=== PATIENT | male | born 1955 | race Caucasian/White ===

== ENCOUNTER 2020-04-24 09:09 | Outpatient (CLI) | payer OTHER, SELFPAY ==
--- NOTE | ~2020-04-24 | CT_ITS ---
EXAMINATION: CT chest w con DATE: 04/24/2020 10:00 INDICATION: Colon cancer with liver metastases TECHNIQUE: Transaxial computed tomographic images of the chest were obtained after the administration of 75 cc of Omnipaque 350 intravenous contrast. The dose-length product (DLP) was 202.12 mGy-cm. Ite rative reconstruction was used. COMPARISON: 08/15/2019 FINDINGS: There is unchanged mild elevation of the right hemidiaphragm. Calcified pulmonary nodules a nd calcified left hilar and mediastinal lymph nodes are consistent with old granulomatous disease. Th ere is mild dependent atelectasis. No pathologically enlarged thoracic lymph nodes are identified. Th e heart size is normal. No pleural effusion or pneumothorax is identified. A right internal jugular P ort-A-Cath ends with its tip in the distal superior vena cava. There is interval enlargement of a hyp odense mass of the left hepatic lobe which measures 4.3 x 3.8 cm, previously 2.4 x 1.5 cm on the most recent comparison. IMPRESSION: 1. No evidence of thoracic metastatic disease. 2. Interval enlargement of a left hepatic lobe mass, consistent with metastatic disease. Reviewed, dictated and finalized at location A.
== END 2020-04-24 09:10 | disposition home or self-care (01) ==
LOC: ANHIMG 09:13
PROVIDERS: PCP Emergency Medicine; Visit Provider Internal Medicine Hematology & Oncology
DX: C18.7 Malignant neoplasm of sigmoid colon (principal); R16.0 Hepatomegaly, not elsewhere classified
CPT/HCPCS: 71260; Q9967

== ENCOUNTER 2020-07-16 09:07 | Outpatient (CLI) | payer OTHER, SELFPAY ==
--- NOTE | ~2020-07-16 | CT_ITS ---
EXAMINATION: CT chest abdomen pelvis w con DATE: 07/16/2020 10:00 INDICATION: Colon cancer TECHNIQUE: Transaxial computed tomographic images of the chest, abdomen, and pelvis were obtained aft er the administration of 100 cc of Omnipaque 350 intravenous contrast. The dose-length product (DLP) was 640.21 mGy-cm. Automated exposure control and iterative reconstruction technique were employed. COMPARISON: 04/24/2020, 08/05/2019 FINDINGS: CHEST CT: There is unchanged elevation of the right hemidiaphragm. A right internal jugular Port-A-Cath ends wi th its tip in the distal superior vena cava. Calcified pulmonary nodules and calcified left hilar and mediastinal lymph nodes are consistent with old granulomatous disease. There is mild dependent atele ctasis. No focal airspace opacities are identified. No pathologically enlarged thoracic lymph nodes a re identified. The heart size is normal. Bilateral gynecomastia is noted. There is mild thoracic spon dylosis. ABDOMEN/PELVIS CT: An approximately 4.3 x 3.8 cm mass of the left hepatic lobe is not significantly changed since the mo recent comparison examination. No definite new liver mass is identified. The spleen, pancreas, and adrenal glands are normal. The gallbladder is surgically absent. There is a 1.3 cm cyst of the right kidney. The left kidney is unremarkable. No pathologically enlarged abdominal or pelvic lymph nodes are identified. There is no free intraperitoneal gas or evidence of bowel obstruction. A circumaortic left renal vein is noted. There is calcified atherosclerosis of the aorta and many of the other janice sam. There are surgical changes at the rectosigmoid colon. There is mild lumbar spondylosis. There i s a small fat-containing umbilical hernia. IMPRESSION: 1. Stable mass of the left hepatic lobe, consistent with metastatic disease. 2. No thoracic metastatic disease identified. Reviewed, dictated and finalized at location A.
== END 2020-07-16 09:08 | disposition home or self-care (01) ==
LOC: ANHIMG 09:15
PROVIDERS: PCP Emergency Medicine; Visit Provider Internal Medicine Hematology & Oncology
DX: C18.7 Malignant neoplasm of sigmoid colon (principal)
CPT/HCPCS: 71260; 74177; Q9967

== ENCOUNTER 2020-12-29 00:31 | Emergency (ER) | payer OTHER, SELFPAY ==
--- NOTE | ~2020-12-29 | CT_ITS ---
EXAMINATION: CT abdomen pelvis w con EXAM DATE: 12/29/2020 02:23 INDICATION: Abdominal pain, history of colon cancer with liver. TECHNIQUE: Spiral CT of the abdomen and pelvis was performed following intravenous injection of 100 m L Omnipaque 350. Axial, coronal and sagittal images were reviewed. The dose-length product (DLP) fo r this examination was 530.20 mGy-cm. The exposure was tailored according to patient size (auto mA e xposure control), and iterative reconstruction (ASIR) was used as additional dose reduction technique . Comparison is made to prior examination from 07/16/2020. FINDINGS: Again there is left liver lobe cystic mass, measuring about 5 cm. Appearance stable. No new liver lesions. The spleen, pancreas and adrenal glands are unremarkable. Gallbladder is unremarkabl e. No biliary obstruction. Portal and splenic veins are patent. Kidneys enhance symmetrically. Th ere is no hydronephrosis. The prostate is unremarkable. The bladder is unremarkable. There is no retroperitoneal or pelvic lymphadenopathy. Tiny umbilical fat-containing hernias. Small amount of p erihepatic ascites. The appendix is normal. There is cecal anastomosis site, and also a rectosigmoid anastomosis site. Th ere are several loops of mid small bowel with severe edema, no pneumatosis. The vasculature to the stacey wel appears nonthrombosed. Differential diagnosis includes enteritis, inflammatory bowel disease, vas culopathy, less likely ischemia. This is a new finding compared to previous exam. There is expected a mount of colonic stool. No free intraperitoneal gas. The heart is normal in size. There are no p ericardial or pleural effusions. Basilar subsegmental atelectasis. There are no osteoblastic or ost eolytic lesions identified. IMPRESSION: 1. Several loops of severe mid jejunal edema without thrombosed vessels. Consider enteritis, inflamm atory bowel disease, vasculopathy, less likely nonocclusive ischemia. 2. Stable left liver lobe cystic mass. 3. Development of small amount perihepatic ascites. 4. Cystic duct remnant stones. Reviewed, dictated and finalized at location A. IMPRESSION: 1. Several loops of severe mid jejunal edema without thrombosed vessels. Consi felipe enteritis, inflammatory bowel disease, vasculopathy, less likely nonocclusi ve ischemia. 2. Stable left liver lobe cystic mass. 3. Development of small amount perihepatic ascites. 4. Cystic duct remnant stones.
[2020-12-29 00:34] VITALS: BP 102/71; PULSE 88; RESP 16; TEMP 36.3; O2SAT 96
[2020-12-29] MEDS: SODIUM CHLORIDE 0.9% IV 1,000 ML 999 ML IV CONT ×2 (02:05→03:30)
[2020-12-29] MEDS: ONDANSETRON INJ 4 MG/2 ML VIAL IV PUSH (02:06)
[2020-12-29] MEDS: HYDROmorphone HCL INJ (*CRX) 1 MG/ML SYR 0.5 MG IV PUSH (02:06)
[2020-12-29 03:38] LABS: Hemoglobin 14.3 g/dL (14.0-18.0); Lymphocytes Absolute Auto 0.25 K/mm3 (0.9-3.2); Lymphocytes Percent Auto 7.1 % (18.3-44.2); Mean Corpuscular HGB Conc 33.3 g/dl (32-36); Mean Corpuscular Hemoglobin 31.1 pg (26-34); Mean Corpuscular Volume 93.5 fl (80-100); Mean Platelet Volume 9.5 fl (7.4-10.4); Monocytes Absolute Auto 0.2 K/mm3 (0.1-0.6); Monocytes Percent Auto 4.3 % (2.6-8.5); Neutrophils Absolute Auto 3.1 K/mm3 (1.3-6.7); Neutrophils Percent Auto 88.6 % (45.5-73.1); Platelet Count Result 240 k/mm3 (150-375); Red Cell Distribution Width 15.6 % (11.5-14.5); White Blood Count 3.5 K/mm3 (4.5-10.0)
[2020-12-29 03:52] VITALS: BP 124/76; PULSE 86; RESP 16; TEMP 36.3; O2SAT 96
[2020-12-29 03:53] LABS: Alanine Aminotransferase 27 U/L (4-50); Albumin Level 4.3 g/dL (3.5-5.1); Alkaline Phosphatase 154 U/L (38-126); Anion Gap 9 mmol/L (8-16); Aspartate Amino Transferase 35 U/L (17-59); Bilirubin,Total 1.3 mg/dL (0.2-1.3); Blood Urea Nitrogen 14 mg/dL (9-20); Calcium 9.3 mg/dL (8.4-10.2); Carbon Dioxide 25 mmol/L (22-30); Chloride 107 mmol/L (98-107); Estimated CRCL calculation 65 ml/min; Estimated Glomerular Filt Rate > 60; Glucose 122 mg/dL (75-110); Lipase 58 U/L (23-300); Potassium 4.6 mmol/L (3.4-5.0); Sodium 141 mmol/L (137-145)
--- NOTE | 2020-12-29 04:24 | ED.GENADULT ---
HPI - General Adult General Chief complaint: Abdominal Pain Stated complaint: I have cancer/ pain Time Seen by Provider: 12/29/20 01:59 Source: patient and family Limitations: no limitations History of Present Illness HPI narrative: Patient is 65 years old white male presents with mid back pain started few hours prior to arrival to the emergency room. Patient denies any fever, chills, nausea, vomiting, abdominal pain or chest pain. Patient had similar symptoms at least twice in the past and was told to take Advil for it. History of colon cancer with liver metastasis. Related Data Home Medications Medication Instructions Recorded Confirmed ascorbic acid (vitamin C) 500 mg PO DAILY 07/23/19 12/28/20 aspirin [Aspir-81] 81 mg PO DAILY 07/23/19 12/28/20 lidocaine-prilocaine 1 applic TOPICAL ONCE 07/23/19 12/28/20 lisinopril 40 mg PO DAILY 07/23/19 12/28/20 megestrol 625 mg PO DAILY 07/23/19 12/28/20 multivitamin 1 tablet PO DAILY 07/23/19 12/28/20 ondansetron HCl 4 mg PO Q6H PRN 07/23/19 12/28/20 oxybutynin chloride 5 mg PO DAILY 07/23/19 12/28/20 vit A,C and X-mivjhd-zprwkghf 1 tablet PO DAILY 07/23/19 12/28/20 [Ocuvite with Lutein] mecobalamin (vitamin B12) [B12 1,000 mcg PO DAILY 08/17/20 12/28/20 Active] gabapentin 300 mg PO QID 09/28/20 12/28/20 dicyclomine 10 mg PO QID 12/28/20 12/28/20 omeprazole 40 mg PO DAILY 12/28/20 12/28/20 sertraline 50 mg PO DAILY 12/28/20 12/28/20 Allergies Allergy/AdvReac Type Severity Reaction Status Date / Time egg Allergy Unknown Diarrhea Verified 12/28/20 09:18 milk Allergy Unknown Diarrhea Verified 12/28/20 09:18 Review of Systems Review of Systems: Narrative: CONSTITUTIONAL: Denies fever, chills, or sweats. EYES: Denies visual changes, redness, or discharge. ENT: Denies rhinorrhea, congestion, sore throat, or otalgia. CARDIOVASCULAR: Denies chest pain, palpitations, or edema. RESPIRATORY: Denies cough or dyspnea. GASTROINTESTINAL: Denies abdominal pain, nausea, vomiting, or diarrhea. GENITOURINARY: Denies dysuria or hematuria. SKIN: Denies rash or itching. MUSCULOSKELETAL: Denies back pain, joint pain, or myalgia. NEUROLOGIC: Denies headache, numbness, or weakness. PSYCHIATRIC: Denies anxiety or depression. [facility] Family History Family History Mother Family history of lung cancer Social History Social History Smoking status: Never smoker Alcohol intake: never Exam Narrative: Exam Narrative: General appearance: Well-developed, well-nourished Skin: Normal color Head: Normocephalic, nontraumatic Eyes: Clear conjunctiva ENT: Oropharynx normal, ears normal, nose normal Neck: Supple, nontender Chest and respiratory: Airway patent, no respiratory distress, no accessory muscle use Heart: Regular rate/rhythm Abdomen: Soft, nontender, no organomegaly, quiet bowel sounds Vascular: Normal peripheral pulses, normal capillary refill. Musculoskeletal: Normal range of motion, nontender back Neurologic: Alert and oriented ?3, PROGRAM DIRECTOR is normal as tested, no gross motor deficit Course Course Emergency Course: Stable, improved Vital Signs Vital signs: Vital Signs Temperature 36.3 C L 12/29/20 00:34 Pulse Rate 88 12/29/20 00:34 Respiratory Rate 16 12/29/20 00:34 Blood Pressure 102/71 12/29/20 00:34 Pulse Oximetry 96 12/29/20 00:34 Temperature 36.3 C L 12/29/20 03:52 Pulse Rate 86 12/29/20 03:52 Respiratory Rate 16 12/29/20 03:52 Blood Pressure 124/76 12/29/20 03:52 Pulse Oximetry 96 12/29/20 03:52 Medical Decision Making MDM Narrative Medical deci
== END 2020-12-29 04:40 | disposition home or self-care (01) ==
PROVIDERS: Emergency Provider Emergency Medicine; PCP Emergency Medicine
DX: M54.6 Pain in thoracic spine (principal); C78.7 Secondary malignant neoplasm of liver and intrahepatic bile duct; Z85.038 Personal history of other malignant neoplasm of large intestine; Z79.82 Long term (current) use of aspirin; R93.3 Abnormal findings on diagnostic imaging of other parts of digestive tract
CPT/HCPCS: 36415; 74177; 80053; 83690; 85025; 96361; 96374; 96375; 99284; J1170; J2405; J7030; Q9967

== ENCOUNTER 2021-01-08 12:29 | Emergency (ER) | payer OTHER, SELFPAY ==
[2021-01-08] VITALS (7 sets, daily range): BP systolic 103–136; BP diastolic 57–89; PULSE 70–88; RESP 16–20; TEMP 36.5; O2SAT 100
--- NOTE | ~2021-01-08 | CT_ITS ---
EXAMINATION: CT abdomen pelvis w con INDICATION: Abdominal pain TECHNIQUE: Computed tomographic images of the abdomen and pelvis were obtained after the administrati on of 100 cc of Omnipaque 350 intravenous contrast. The dose-length product (DLP) was 542.38 mGy-cm. Automated exposure control and iterative reconstruction technique were employed. COMPARISON: 12/29/2020 FINDINGS: Minimal dependent atelectasis is present in the lung bases. The heart size is normal. A 5.6 cm mass of the left hepatic lobe previously measured 4.8 cm. The spleen and pancreas are normal. The gallbladder is absent. The adrenal glands are normal. The left kidney is unremarkable. There is a 12 mm cyst of the right kidney upper pole. No pathologically enlarged abdominal or pelvic lymph nodes a re identified. There is no free intraperitoneal gas or evidence of bowel obstruction. There is a surg ical anastomosis in the rectum. There are multiple small fat-containing ventral hernias. Mild lumbar spondylosis is noted. IMPRESSION: 1. No CT correlate for the patient's symptoms. 2. Increase in size of the left hepatic lobe metastasis. Reviewed, dictated and finalized at location A.
[2021-01-08 13:23] LABS: Basophils Percent Auto 1.1 % (0.2-1.2); Eosinophils Percent Auto 3.4 % (0-4.4); Hematocrit 32.8 % (42.0-52.0); Hemoglobin 10.9 g/dL (14.0-18.0); Immature Granulocyte Absolute 0.02 K/mm3 (0.00-0.031); Immature Granulocyte Percent A 2.3 % (0-0.5); Lymphocytes Absolute Auto 0.37 K/mm3 (0.9-3.2); Mean Corpuscular HGB Conc 33.2 g/dl (32-36); Mean Corpuscular Volume 93.2 fl (80-100); Mean Platelet Volume 9.8 fl (7.4-10.4); Monocytes Absolute Auto 0.1 K/mm3 (0.1-0.6); Monocytes Percent Auto 14.8 % (2.6-8.5); Neutrophils Absolute Auto 0.3 K/mm3 (1.3-6.7); Neutrophils Percent Auto 36.4 % (45.5-73.1); Platelet Count Result 169 k/mm3 (150-375); Red Blood Count 3.52 M/mm3 (4.6-6.20); Red Cell Distribution Width 15.4 % (11.5-14.5)
[2021-01-08 13:30] LABS: Add Urine Microscopic? YES; Appearance Urine Cloudy (Clear); Bilirubin Urine Negative (Negative); Blood Urine Negative (Negative); Color Urine Amber (Yellow); Glucose Urine UA Negative (Negative); Ketones Urine Trace mg/dL (Negative); Leukocyte Esterase Ur Negative LEU/UL (Negative); Mucus Urine Heavy /lpf; Nitrate Urine Negative (Negative); Protein Urine 2+ mg/dL (Negative); Squamous Epithelial Cell Urine Few /hpf (Few)
[2021-01-08 13:32] LABS: INR 1.2; Prothrombin Time 16.2 Seconds (11.1-14.7)
[2021-01-08 13:33] LABS: Partial Thromboplastin Time 40.2 SECONDS (22.3-36.8)
[2021-01-08 13:35] LABS: White Blood Count 0.9 K/mm3 (4.5-10.0)
[2021-01-08 13:36] LABS: Specific Grav Ur 1.034 (1.001-1.035)
[2021-01-08 13:37] LABS: Lactic Acid Reflex 2.5 mmol/L (0.7-2.1); Platelet Estimate Adequate (Adequate)
[2021-01-08 13:38] LABS: Anisocytosis 1+ (NORMAL); Hypochromasia 1+ (NORMAL); Ovalocytes 1+ (NORMAL); Tear Drop Cells 1+ (NORMAL)
[2021-01-08 13:39] LABS: Alanine Aminotransferase 30 U/L (4-50); Albumin Level 3.8 g/dL (3.5-5.1); Alkaline Phosphatase 131 U/L (38-126); Anion Gap 8 mmol/L (8-16); Aspartate Amino Transferase 28 U/L (17-59); Bilirubin,Total 1.3 mg/dL (0.2-1.3); Blood Urea Nitrogen 21 mg/dL (9-20); Carbon Dioxide 26 mmol/L (22-30); Chloride 105 mmol/L (98-107); Estimated CRCL calculation 65 ml/min; Estimated Glomerular Filt Rate > 60; Glucose 123 mg/dL (75-110); Lipase 27 U/L (23-300); Potassium 3.6 mmol/L (3.4-5.0); Sodium 139 mmol/L (137-145)
[2021-01-08 16:20] LABS: Reflex Lactic Acid Yes or No Add Lactic
--- NOTE | 2021-01-08 16:22 | PC.NURSE ---
Pt to CT scan via stretcher at this time.
--- NOTE | 2021-01-08 16:59 | ED.ABDPAIN ---
HPI - Abdominal Pain General Chief Complaint: Abdominal Pain <Álvaro Lugo PA-C - Last Filed: 01/08/21 17:23> Stated Complaint: SENT BY PCP FOR WEIGHT LOSS/ABD PAIN <Álvaro Lugo PA-C - Last Filed: 01/08/21 17:23> Time Seen by Provider: 01/08/21 12:50 <Álvaro Lugo PA-C - Last Filed: 01/08/21 17:23> Source: patient, family and old records reviewed <Álvaro Lugo PA-C - Last Filed: 01/08/21 17:23> Mode of arrival: ambulatory <Álvaro Lugo PA-C - Last Filed: 01/08/21 17:23> Limitations: no limitations <Álvaro Lugo PA-C - Last Filed: 01/08/21 17:23> History of Present Illness HPI narrative: Patient is a 65-year-old male who presents to emergency department for evaluation of abdominal discomfort and possible dehydration from his oncology office where he was getting his Neupogen shot. Patient has history of colon cancer and has been experiencing abdominal pain off and on which has been treated with Tylenol. Patient has also had decreased appetite. Patient on arrival is in the room in no distress notes pain of the abdomen that is mild to moderate. Patient denies any vomiting nausea rectal bleeding melena or diarrhea. Patient is scheduled for chemotherapy on Monday. Patient otherwise denies any illness injury or trauma or other complaints <Álvaro Lugo PA-C - Last Filed: 01/08/21 17:23> Related Data Home Medications: Home Medications Medication Instructions Recorded Confirmed ascorbic acid (vitamin C) 500 mg PO DAILY 07/23/19 01/08/21 aspirin [Aspir-81] 81 mg PO DAILY 07/23/19 01/08/21 lidocaine-prilocaine 1 applic TOPICAL ONCE 07/23/19 01/08/21 lisinopril 40 mg PO DAILY 07/23/19 01/08/21 megestrol 625 mg PO DAILY 07/23/19 01/08/21 multivitamin 1 tablet PO DAILY 07/23/19 01/08/21 ondansetron HCl 4 mg PO Q6H PRN 07/23/19 01/08/21 oxybutynin chloride 5 mg PO DAILY 07/23/19 01/08/21 vit A,C and O-polmki-hwbicnui 1 tablet PO DAILY 07/23/19 01/08/21 [Ocuvite with Lutein] mecobalamin (vitamin B12) [B12 1,000 mcg PO DAILY 08/17/20 01/08/21 Active] gabapentin 300 mg PO QID 09/28/20 01/08/21 dicyclomine 10 mg PO QID 12/28/20 01/08/21 omeprazole 40 mg PO DAILY 12/28/20 01/08/21 sertraline 50 mg PO DAILY 12/28/20 01/08/21 <Álvaro Lugo PA-C - Last Filed: 01/08/21 17:23> Allergies/Adverse Reactions: Allergies Allergy/AdvReac Type Severity Reaction Status Date / Time egg Allergy Unknown Diarrhea Verified 01/08/21 12:13 milk Allergy Unknown Diarrhea Verified 01/08/21 12:13 <Álvaro Lugo PA-C - Last Filed: 01/08/21 17:23> Review of Systems Review of Systems: All systems reviewed & are unremarkable except as noted in HPI and below <Álvaro Lugo PA-C - Last Filed: 01/08/21 17:23> PMFSH Past Medical History Medical History: Medical History (Updated 01/08/21 @ 17:22 by Álvaro Lugo PA-C) Chemotherapy induced neutropenia Colon cancer <Álvaro Lugo PA-C - Last Filed: 01/08/21 17:23> Family History Family History: Family History Mother Family history of lung cancer <Álvaro Lugo PA-C - Last Filed: 01/08/21 17:23> Social History Social History: Social History Smoking status: Never smoker Alcohol intake: never Gender identity (if verbalized by the patient): Male <Álvaro Lugo PA-C - Last Filed: 01/08/21 17:23> Exam Narrative: Exam Narrative: GENERAL: Chronically ill-appearing, well-nourished, and in no acute distress. HEAD: Normocephalic, atraumatic. EYES: PERRLA and EOMI. ENT: Nares clear, no rhinorrhea or epistaxis. Mucous membranes moist. CHEST: Clear to auscultation. No respiratory distress. No wheezes rales or rhonchi HEART: Regular rate and rhythm. No murmur heard. Normal peripheral pulses. ABDOMEN: Soft, mild tenderness of the abdomen throughout n
[2021-01-08 17:29] LABS: Lactic Acid 1.1 mmol/L (0.7-2.1)
== END 2021-01-08 18:00 | disposition home or self-care (01) ==
PROVIDERS: Emergency Medicine Emergency Medical Services; Emergency Provider General Practice; PCP Emergency Medicine
DX: R10.9 Unspecified abdominal pain (principal); C18.9 Malignant neoplasm of colon, unspecified; C78.7 Secondary malignant neoplasm of liver and intrahepatic bile duct; D70.1 Agranulocytosis secondary to cancer chemotherapy; T45.1X5A Adverse effect of antineoplastic and immunosuppressive drugs, initial encounter
CPT/HCPCS: 36415; 74177; 80053; 81001; 83605; 83690; 85025; 85610; 85730; 86140; 86850; 86900; 86901; 96365; 96372; 99284; J0131; J7030; Q5101; Q9967

== ENCOUNTER → 2021-01-19 03:20 | Outpatient (CLI) | payer OTHER, SELFPAY ==
[2021-01-19 20:31] LABS: SARS-CoV-2 RNA PCR Negative
== END ==
PROVIDERS: PCP Emergency Medicine; Visit Provider Internal Medicine Gastroenterology
DX: Z01.812 Encounter for preprocedural laboratory examination (principal); Z20.822 Contact with and (suspected) exposure to COVID-19
CPT/HCPCS: C9803; U0003; U0005

== ENCOUNTER 2021-01-22 01:47 | Day surgery (SDC) | payer OTHER, SELFPAY ==
[2021-01-14 13:12] VITALS: BMI 24.6
[2021-01-22 11:06] VITALS: BP 154/80; PULSE 68; RESP 17; TEMP 36.1; O2SAT 100; BMI 23.4
[2021-01-22] MEDS: LACTATED RINGERS 1,000 ML 150 ML IV CONT (11:25)
--- NOTE | 2021-01-22 11:26 | WPDANESEPPF ---
Anes - Initial Pre Proc Eval Procedure: Operation Date: 01/22/21 12:15 Proposed Procedures p Esophagogastroduodenoscopy & Colonoscopy - Quinton Willett MD Date/Time: 01/22/21 11:26 Surgeon: Quinton Willett MD Pre Op Diagnosis: weight loss, abd pain, anorexia Patient Data Age: 65 Gender: M Height: 5 ft 10 in Weight: 74.2 kg Last Vital Signs Temp 97 F L 01/22/21 11:06 Pulse 68 01/22/21 11:06 Resp 17 01/22/21 11:06 BP 154/80 H 01/22/21 11:06 Pulse Ox 100 01/22/21 11:06 Allergies Allergy/AdvReac Type Severity Reaction Status Date / Time egg Allergy Unknown Diarrhea Verified 01/22/21 11:05 milk Allergy Unknown Diarrhea Verified 01/22/21 11:05 Home Medications Medication Instructions Recorded Confirmed Type ascorbic acid (vitamin C) 500 mg PO DAILY 07/23/19 01/22/21 History aspirin [Aspir-81] 81 mg PO DAILY 07/23/19 01/22/21 History lidocaine-prilocaine 1 applic TOPICAL ONCE 07/23/19 01/22/21 History lisinopril 40 mg PO DAILY 07/23/19 01/22/21 History megestrol 625 mg PO DAILY 07/23/19 01/22/21 History multivitamin 1 tablet PO DAILY 07/23/19 01/22/21 History ondansetron HCl 4 mg PO Q6H PRN 07/23/19 01/22/21 History vit A,C and P-myfvep-bmbiywxh 1 tablet PO DAILY 07/23/19 01/22/21 History [Ocuvite with Lutein] simvastatin 10 mg tablet 10 mg PO HS #90 tablet 04/02/20 01/22/21 Rx mecobalamin (vitamin B12) [B12 1,000 mcg PO DAILY 08/17/20 01/22/21 History Active] gabapentin 300 mg PO QID 09/28/20 01/22/21 History dicyclomine 10 mg PO PRN PRN 12/28/20 01/22/21 History omeprazole 40 mg PO DAILY 12/28/20 01/22/21 History sertraline 50 mg PO DAILY 12/28/20 01/22/21 History famotidine [Pepcid] 20 mg PO BID #14 tablet 01/08/21 01/22/21 Rx Patient hx anesthesia problems: none Family hx anesthesia problems: none PMFSH Past Medical History Medical History (Updated 01/09/21 @ 00:00 by Lore Brown) Chemotherapy induced neutropenia Colon cancer Family History Family History Mother Family history of lung cancer Social History Social History Smoking status: Never smoker Alcohol intake: never Substance use: never Gender identity (if verbalized by the patient): Male Spiritual care concerns: No Anes - Eval Final PreProcedure Day of Procedure 01/22/21 11:26 Patient weight: normal Heart: regular rate and rhythm Lungs: clear to auscultation Airway: Mallampati scale class II Neurological: alert and oriented Last oral intake: >/= 8 hours ASA classification: IV Emergent: no Anesthetic plan: proceed Anesthesia type and monitoring: general GIVS and standard monitoring Informed Consent: The patient's anesthetic plan and its attendant risks and benefits were discussed with the patient/family/POA. Questions were solicited and answers provided to the satisfaction of the patient/family/POA.
--- NOTE | 2021-01-22 11:54 | PM.HPGS ---
History of Present Illness History of Present Illness Consent: Risks, benefits, and alternatives have been discussed and questions answered. Patient agrees to proceed with procedure. Chief complaint: weight loss, abd pain, anorexia Narrative: Shane Bryan is a 65 year old male with rectal cancer in 2018 s/p surgery and still on chemotherapy, found to have also liver met. He had weight loss and has not had colonoscopy since then. Review of Systems Constitutional: Constitutional: Denies headache(s) and Denies weakness Eyes: Eyes: Denies blurry vision ENT: Reports Normal hearing present, Denies headache(s) and Denies neck pain Cardiovascular: Cardiovascular: Denies chest pain and Denies dyspnea Respiratory: Respiratory: Denies dyspnea Gastrointestinal: Gastrointestinal: Reports no additional gastrointestinal complaints Genitourinary: Genitourinary: Denies dysuria Musculoskeletal: Musculoskeletal: Denies neck pain Integumentary/Breasts: Skin/Breast: Denies dry skin Neurologic: Reports Normal hearing present, Denies headache(s) and Denies weakness Psychiatric: Psychiatric: Denies anxiety Endocrine: Endocrine: Denies change in body appearance Hematologic/Lymphatic: Hematologic/Lymphatic: Denies easy bleeding Allergic/Immunologic: Allergic/Immunologic: Denies urticaria PMFSH Past Medical History Medical History (Updated 01/22/21 @ 11:55 by Quinton Willett MD) Chemotherapy induced neutropenia Colon cancer Metastasis to liver Weight loss Family History Family History Mother Family history of lung cancer Social History Social History Smoking status: Never smoker Alcohol intake: never Substance use: never Gender identity (if verbalized by the patient): Male Spiritual care concerns: No Meds Home Medications and Allergies Home Medications Medication Instructions Recorded Confirmed Type ascorbic acid (vitamin C) 500 mg PO DAILY 07/23/19 01/22/21 History aspirin [Aspir-81] 81 mg PO DAILY 07/23/19 01/22/21 History lidocaine-prilocaine 1 applic TOPICAL ONCE 07/23/19 01/22/21 History lisinopril 40 mg PO DAILY 07/23/19 01/22/21 History megestrol 625 mg PO DAILY 07/23/19 01/22/21 History multivitamin 1 tablet PO DAILY 07/23/19 01/22/21 History ondansetron HCl 4 mg PO Q6H PRN 07/23/19 01/22/21 History vit A,C and H-jjzkpn-agxjxyur 1 tablet PO DAILY 07/23/19 01/22/21 History [Ocuvite with Lutein] simvastatin 10 mg tablet 10 mg PO HS #90 tablet 04/02/20 01/22/21 Rx mecobalamin (vitamin B12) [B12 1,000 mcg PO DAILY 08/17/20 01/22/21 History Active] gabapentin 300 mg PO QID 09/28/20 01/22/21 History dicyclomine 10 mg PO PRN PRN 12/28/20 01/22/21 History omeprazole 40 mg PO DAILY 12/28/20 01/22/21 History sertraline 50 mg PO DAILY 12/28/20 01/22/21 History famotidine [Pepcid] 20 mg PO BID #14 tablet 01/08/21 01/22/21 Rx Allergies Allergy/AdvReac Type Severity Reaction Status Date / Time egg Allergy Unknown Diarrhea Verified 01/22/21 11:05 milk Allergy Unknown Diarrhea Verified 01/22/21 11:05 Vital Signs Vital Signs - 24 hr 01/22/21 11:06 Temperature 97 F L Pulse Rate 68 Respiratory Rate 17 Blood Pressure 154/80 H Pulse Oximetry 100 Exam Const: General: comfortable and no acute distress HENMT: General nose exam: Normal nares present Eyes: General: appearance normal, both eyes and all related structures Neck: Neck: no JVD Resp: Auscultation: clear to auscultation bilaterally Cardio: Rate: regular rate Rhythm: regular rhythm GI: Inspection: non-distended GI Palp: Yes Soft to palpation Skin: General skin exam: normal color Neuro: General: gait normal Speech: normal speech Extrem: General: normal to inspection Psych: Mental Status: mental status grossly normal Assessment and Plan Assessment and plan (1) Metastasis to liver:
[2021-01-22 12:20] VITALS: BP 122/76; PULSE 70; RESP 17; O2SAT 100
[2021-01-22 12:30] VITALS: BP 142/85; PULSE 57; RESP 16; O2SAT 100
[2021-01-22 12:40] VITALS: BP 157/91; PULSE 64; RESP 17; O2SAT 100
== END 2021-01-22 13:09 | disposition home or self-care (01) ==
PROVIDERS: PCP Emergency Medicine; Visit Provider Internal Medicine Gastroenterology
PROC: 0DJ08ZZ Inspection of Upper Intestinal Tract, Via Natural or Artificial Opening Endoscopic (ICD-10-PCS; CPT 43235; principal; 2021-01-22 12:15)
DX: C20 Malignant neoplasm of rectum (principal); C78.7 Secondary malignant neoplasm of liver and intrahepatic bile duct; R63.4 Abnormal weight loss; Z92.21 Personal history of antineoplastic chemotherapy; Z98.0 Intestinal bypass and anastomosis status; K57.30 Diverticulosis of large intestine without perforation or abscess without bleeding; K64.8 Other hemorrhoids; Z79.82 Long term (current) use of aspirin; R63.0 Anorexia
CPT/HCPCS: 43235; 45378; C9803; J2704; J7120; U0003; U0005

== ENCOUNTER 2022-08-08 09:16 | Outpatient (CLI) | payer OTHER, SELFPAY ==
[2022-08-08 12:24] LABS: Cholesterol 108 mg/dL (0-200); HDL Direct 46 mg/dL; Triglycerides 90 mg/dL (<150)
[2022-08-08 12:41] LABS: LDL Cholesterol Direct < 30 mg/dL
== END 2022-08-08 09:17 | disposition home or self-care (01) ==
LOC: ANHLAB 09:18
PROVIDERS: PCP Nurse Practitioner Family; Visit Provider Nurse Practitioner Family
DX: E78.2 Mixed hyperlipidemia (principal)
CPT/HCPCS: 36415; 80061

== ENCOUNTER 2023-02-14 08:07 | Outpatient (CLI) | payer OTHER, SELFPAY ==
--- NOTE | ~2023-02-14 | NM_ITS ---
EXAMINATION: NM bone scan whole body DATE: 02/14/2023 14:17 INDICATION: Malignant neoplasm of sigmoid colon. TECHNIQUE: 23.1 mCi Tc-99m HDP was administered intravenously. Delayed whole-body scintigrams were o btained. COMPARISON: CT abdomen and pelvis 01/08/2021 FINDINGS: There is a normal distribution of activity in the bones. IMPRESSION: 1. No evidence of osseous metastatic disease. Reviewed, dictated and finalized at location A.
== END 2023-02-14 08:08 | disposition home or self-care (01) ==
PROVIDERS: PCP Family Medicine Sports Medicine; Visit Provider Internal Medicine Hematology & Oncology
DX: C18.7 Malignant neoplasm of sigmoid colon (principal)
CPT/HCPCS: 78306; A9503

== ENCOUNTER 2023-05-08 20:22 | Emergency (ER) | payer OTHER, SELFPAY ==
--- NOTE | ~2023-05-08 | CT_ITS ---
Clinical Indication: Metastatic cancer CT Scan of the Chest, Abdomen, and Pelvis without Contrast: Technique: Contiguous sections were acquired throughout the chest, abdomen, and pelvis without IV con trast administration. Dose reduction technique was used on this scan by utilizing automated exposure control and iterative reconstruction technique. The dose-length product (DLP) was 572.47 mGy-cm. COMPARISON: 01/08/2021 Findings: Right-sided Mediport in place. There is no evidence of any significant mediastinal, hilar or axillary lymphadenopathy. Calcified rig ht paratracheal, precarinal, and left hilar lymph nodes are present. The mediastinal soft tissues margo ear normal. There is no evidence of pleural or pericardial effusion. There is diffuse subpleural reticulation with peripheral and basilar predominant interstitial thicken ing, consistent with chronic interstitial disease. No definite suspicious pulmonary nodule identified . There is mild pleural thickening bilaterally the lung bases. There is a probable ill-defined 4.2 cm hypodense mass in the left hepatic lobe. Possible prior partia l left hepatic lobe resection. The spleen, pancreas, adrenals and kidneys are within normal limits. G allbladder appears to be absent. No evidence of aortic aneurysm. No lymphadenopathy. No bowel obstruction or bowel wall thickening. There is no evidence to suggest acute appendicitis. Urinary bladder is unremarkable. Prostate gland and seminal vesicles are unremarkable. Impression: 4.2 cm ill-defined hypodense left hepatic lobe mass, compatible with neoplasm/metastasis. Chronic pulmonary interstitial disease, as detailed above, suggestive of UIP. Reviewed, dictated and finalized at [facility]. Impression: 4.2 cm ill-defined hypodense left hepatic lobe mass, compatible with neoplasm/m etastasis. Chronic pulmonary interstitial disease, as detailed above, suggestive of UIP.
--- NOTE | ~2023-05-08 | XR_ITS ---
Portable chest x-ray Comparison: 03/21/2018 Clinical History: Shortness of Findings: Right-sided Mediport remains in place. There is patchy, hazy left lower lobe airspace dise ase. Right lung is essentially clear. Cardiomediastinal silhouette is stable. Bones and soft tissues are unremarkable. Impression: Patchy, hazy left basilar airspace disease, suspicious for pneumonia. Right-sided Mediport in place. Reviewed, dictated and finalized at location M. Impression: Patchy, hazy left basilar airspace disease, suspicious for pneumonia. Right-sided Mediport in place.
--- NOTE | ~2023-05-08 | CT_ITS ---
Non-contrast Head CT History: Metastatic cancer COMPARISON: 03/21/2018 Technique: Axial non-contrast imaging of the brain was performed. Dose reduction technique was used on this scan by utilizing automated exposure control and iterative reconstruction technique. The dose -length product (DLP) was 605.33 mGy-cm. Findings: There is no evidence of intracranial hemorrhage, mass lesion, or acute infarct. Brain par enchyma appears normal. The ventricles and subarachnoid spaces are normal in size. The calvarium ap pears normal. The visualized paranasal sinuses and mastoid air cells are clear. Impression: No significant abnormality seen. Reviewed, dictated and finalized at location . Impression: No significant abnormality seen.
[2023-05-08 20:23] VITALS: BP 106/65; PULSE 93; RESP 20; TEMP 36.3; O2SAT 99
--- NOTE | 2023-05-08 20:25 | ECG_ITS ---
Measurements Intervals [place] Rate: 91 P: 7 [place]: 108 QRS: -29 QRSD: 95 T: 8 QT: 345 QTc: 426 Interpretive Statements SINUS RHYTHM WITH SHORT [place] INTERVAL BORDERLINE LEFT AXIS DEVIATION [QRS AXIS < -20] VOLTAGE CRITERIA FOR LVH [MEETS CRITERIA IN ONE OF: R(aVL), S(V1), R(V5), R(V5/V6)+S(V1)] NONSPECIFIC T-WAVE ABNORMALITY NO PREVIOUS ECG AVAILABLE FOR COMPARISON Electronically Signed On 05-09-2023 13:16:19 CDT by Paddy Morrison M.D.
[2023-05-08 20:36] LABS: Basophils Percent Auto 0.3 % (0.2-1.2); Eosinophils Absolute Auto 0.1 K/mm3 (0-0.3); Eosinophils Percent Auto 1.1 % (0-4.4); Hematocrit 32.3 % (42.0-52.0); Hemoglobin 11.1 g/dL (14.0-18.0); Immature Granulocyte Absolute 0.03 K/mm3 (0.00-0.031); Immature Granulocyte Percent A 0.5 % (0-0.5); Lymphocytes Absolute Auto 0.57 K/mm3 (0.9-3.2); Lymphocytes Percent Auto 9.2 % (18.3-44.2); Mean Corpuscular HGB Conc 34.4 g/dl (32-36); Mean Corpuscular Hemoglobin 32.5 pg (26-34); Mean Corpuscular Volume 94.4 fl (80-100); Mean Platelet Volume 10.1 fl (7.4-10.4); Monocytes Absolute Auto 0.1 K/mm3 (0.1-0.6); Monocytes Percent Auto 1.1 % (2.6-8.5); Neutrophils Absolute Auto 5.4 K/mm3 (1.3-6.7); Neutrophils Percent Auto 87.8 % (45.5-73.1); Platelet Count Result 272 k/mm3 (150-375); Red Blood Count 3.42 M/mm3 (4.6-6.20); Red Cell Distribution Width 20.2 % (11.5-14.5); White Blood Count 6.2 K/mm3 (4.5-10.0)
[2023-05-08 20:47] LABS: Alanine Aminotransferase 210 U/L (6-50); Albumin Level 3.4 g/dL (3.5-5.1); Alkaline Phosphatase 1008 U/L (38-126); Anion Gap 10 mmol/L (8-16); Aspartate Amino Transferase 277 U/L (17-59); Bilirubin,Total 12.3 mg/dL (0.2-1.3); Blood Urea Nitrogen 42 mg/dL (9-20); Calcium 8.3 mg/dL (8.4-10.2); Carbon Dioxide 24 mmol/L (22-30); Chloride 99 mmol/L (98-107); Estimated Glomerular Filt Rate 31; Glucose 125 mg/dL (65-110); Potassium 3.7 mmol/L (3.4-5.0); Sodium 133 mmol/L (137-145)
[2023-05-08 21:34] VITALS: BP 109/72; PULSE 81; RESP 18; TEMP 37; O2SAT 98
[2023-05-08 23:28] LABS: Partial Thromboplastin Time 30.5 SECONDS (22.3-36.8); Prothrombin Time 13.9 Seconds (11.1-14.7)
[2023-05-08 23:35] LABS: NT Pro B Type Natriuretic Pept 39 pg/mL (19.9-100)
[2023-05-09] VITALS (8 sets, daily range): BP systolic 90–139; BP diastolic 54–84; PULSE 71–80; RESP 15–19; TEMP 36.3–36.9; O2SAT 98–100
[2023-05-09 00:10] LABS: Appearance Urine Cloudy (Clear); Bacteria Urine None Seen /hpf; Bilirubin Urine 3+ (Negative); Blood Urine Negative (Negative); Color Urine Dark Yellow (Yellow); Glucose Urine UA Negative (Negative); Ketones Urine Negative (Negative); Leukocyte Esterase Ur Trace LEU/UL (Negative); Need Manual Microscopic Reviewed; Nitrate Urine Negative (Negative); Protein Urine Trace mg/dL (Negative); Specific Grav Ur 1.017 (1.001-1.035); Squamous Epithelial Cell Urine Few /hpf (Few); WBC Urine 0-5 /hpf
[2023-05-09] MEDS: SODIUM CHLORIDE 0.9% IV 1,000 ML 999 ML IV CONT ×2 (00:10→01:56)
[2023-05-09 00:12] LABS: Add Urine Microscopic? YES
[2023-05-09 00:20] LABS: Troponin I < 0.012 ng/mL (0.000-0.034)
--- NOTE | 2023-05-09 01:16 | ED.DIZZY ---
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 Patient reports he has been having dizziness since last week. He states he states his dizziness is worse with standing. He states he passed out when he was evaluated at an outside hospital. labs were ordered and it showed he had elevated liver function test. His family noticed patient had skin discoloration on Monday. He has noticed that his urine has been dark. He denies fever, chills, vomiting or diarrhea. His reports that his blood pressure has been low. Related Data Home Medications Medication Instructions Recorded Confirmed ascorbic acid (vitamin C) 500 mg 500 mg PO DAILY 07/23/19 05/04/23 tablet aspirin 81 mg tablet,delayed 81 mg PO DAILY 07/23/19 05/04/23 release (Aspir-) lidocaine-prilocaine 2.5 %-2.5 % 1 applic topical ONCE 07/23/19 05/04/23 topical cream lisinopril 40 mg tablet 40 mg PO DAILY 07/23/19 05/04/23 megestrol 625 mg/5 mL (125 mg/mL) 625 mg PO DAILY 07/23/19 05/04/23 oral suspension multivitamin 1 tablet PO DAILY 07/23/19 05/04/23 ondansetron HCl 4 mg tablet 4 mg PO Q6H PRN Nausea And Vomiting 07/23/19 05/04/23 vit A 300 mcg-C 200 mg-E 27 1 tablet PO DAILY 07/23/19 05/04/23 mg-lutein 2 mg and minerals tablet (Ocuvite with Lutein) mecobalamin (vitamin B12) 1,000 1,000 mcg PO DAILY 08/17/20 05/04/23 mcg chewable tablet (B12 Active) gabapentin 300 mg tablet 300 mg PO QID 09/28/20 05/04/23 dicyclomine 10 mg capsule 10 mg PO PRN PRN cramping 12/28/20 05/04/23 omeprazole 40 mg capsule,delayed 40 mg PO DAILY 12/28/20 05/04/23 release sertraline 50 mg tablet 50 mg PO DAILY 12/28/20 05/04/23 Allergies Allergy/AdvReac Type Severity Reaction Status Date / Time egg Allergy Unknown Diarrhea Verified 05/04/23 09:34 milk Allergy Unknown Diarrhea Verified 05/04/23 09:34 [facility] Past Medical History Medical History (Updated 05/09/23 @ 08:19 by Mami Carlson MD) Chemotherapy induced neutropenia Colon cancer Metastasis to liver Weight loss Family History Family History Mother Family history of lung cancer Social History Social History Smoking status: Never smoker Alcohol intake: never Substance use: never Gender identity (if verbalized by the patient): Male Spiritual care concerns: No Exam Const: General: no acute distress, alert and ill appearing Orientation/consciousness: patient oriented x3 HENMT: Head: normal to inspection Mouth: Yes lip normal and Yes moist mucous membranes Eyes: Conjunctivae: conjunctival abnormality bilateral conjunctival icterus EOM: EOMs intact bilaterally Chest: Chest palpation & inspection: normal inspection of the chest Resp: Effort & Inspection: normal respiratory effort Auscultation: clear to auscultation bilaterally Cardio: Rate: regular rate Rhythm: regular rhythm Heart sounds: no murmurs GI: Inspection: distended GI Palp: Yes Soft to palpation, No Tenderness to palpation present (GI), No Guarding due to palpation present (GI) and No Rigid due to palpation Auscultation: normal bowel sounds Skin: General skin exam: jaundice Neuro: General: patient oriented x3, moves all extremities and CN's II-XI intact bilaterally Extrem: General: normal to inspection Psych: Mental Status: mental status grossly normal Affect: normal affect Attitude: cooperative Course Reevaluation(s) Reevaluation #1: I discussed with patient and that [facility]
--- NOTE | 2023-05-09 02:13 | PC.NURSE ---
pt is resting with family at bedside. [facility] are wnl nad. pt is on the residential monitor,NSR noted. Pt did void 500 ml of dark orange urine. is very anxious. wants to leave but pt has not been admitted
--- NOTE | 2023-05-09 05:53 | PC.NURSE ---
pt was ambulatory to restroom.
--- NOTE | 2023-05-09 06:40 | PC.NURSE ---
pt is not happy that the results from the CT are not back yet. pt is being transferred for Liver enzymes. pt denies pain
== END 2023-05-09 09:33 | disposition short-term general hospital (02) ==
PROVIDERS: Emergency Provider General Practice; PCP Nurse Practitioner Family
DX: C78.7 Secondary malignant neoplasm of liver and intrahepatic bile duct (principal); C18.9 Malignant neoplasm of colon, unspecified; E80.6 Other disorders of bilirubin metabolism; N17.9 Acute kidney failure, unspecified
CPT/HCPCS: 36415; 70450; 71045; 71250; 74176; 80053; 81001; 83880; 84484; 85025; 85610; 85730; 93005; 96360; 96361; 99285; J7030